=== PATIENT | female | born 1980 | race Caucasian/White ===

== ENCOUNTER 2019-06-02 07:58 | Emergency (ER) | payer MEDICAID, OTHER ==
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
[2019-06-02] MEDS ORDERED: Ibuprofen 600 MG Tab PO ONE (09:08)
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
[2019-06-02] MEDS ORDERED: Bacitracin Oint 1 GM U/D Packet TOP ONE (09:37)
== END 2019-06-02 09:52 | disposition home or self-care (01) ==
LOC: JP.ED 07:58
DX: S00.03XA Contusion of scalp, initial encounter (principal); S10.93XA Contusion of unspecified part of neck, initial encounter; S00.412A Abrasion of left ear, initial encounter; V47.5XXA Car driver injured in collision with fixed or stationary object in traffic accident, initial encounter
CPT/HCPCS: 36415; 70450; 72125; 80053; 85025; 99285; A9270

== ENCOUNTER 2024-11-17 19:22 | Emergency (ER) | payer MEDICAID ==
[2024-11-17] MEDS: Bacitracin Oint 1 GM U/D Packet TOP ONE (20:43)
[2024-11-17] MEDS: Diphtheria,Pertussis(Acell),Tetanus Vaccine 0.5 ML Syringe IM ONE (20:59)
== END 2024-11-17 21:01 | disposition home or self-care (01) ==
LOC: JP.ED 19:22
DX: S90.454A Superficial foreign body, right lesser toe(s), initial encounter (principal); F17.200 Nicotine dependence, unspecified, uncomplicated; Z23 Encounter for immunization; W45.8XXA Other foreign body or object entering through skin, initial encounter
CPT/HCPCS: 90471; 90715; 99283; J2003